=== PATIENT | female | born 1990 | race Caucasian/White ===

== ENCOUNTER 2017-05-27 18:51 | Outpatient (CLI) | payer MEDICAID ==
[~2017-05-27] VITALS: Ht 160 cm; Wt 74.7 kg
[~2017-05-27 18:51] MED LIST: ACET-2047 PO; AMO500 PO; CARB15DR50 LEFT EAR; CEPH500C PO; HYDR30CR75 PR; IBUP-1542 PO; OFLO5DRO7 BOTH EARS
[2017-05-27 19:53] VITALS: BP 123/78; PULSE 88; RESP 18
[2017-05-27] MEDS ORDERED: PRENAT PO (20:06)
[2017-05-27 20:29] LABS: ADD UMIC YES; UR AMORPHOUS CRYSTAL FEW /HPF (NONE SEEN); UR ASCORBIC ACID NEGATIVE (NEGATIVE); UR BACTERIA FEW /HPF (NONE SEEN); UR BILIRUBIN (Dip) NEGATIVE (NEGATIVE); UR BLOOD (Dip) NEGATIVE (NEGATIVE); UR CLARITY CLOUDY (CLEAR); UR COLOR YELLOW (YELLOW); UR GLUCOSE (Dip) NEGATIVE (NEGATIVE); UR KETONES (Dip) NEGATIVE (NEGATIVE); UR LEUKOCYTE ESTERASE (Dip) 2+ Leu/ul (NEGATIVE); UR MUCUS FEW /HPF (NONE SEEN); UR NITRITE (Dip) NEGATIVE (NEGATIVE); UR RBC 1 /HPF (0-5); UR SPECIFIC GRAVITY (Dip) 1.015 (1.003-1.030); UR SQUAMOUS EPITHELIAL CELL MODERATE /HPF (FEW); UR TOTAL PROTEIN (Dip) NEGATIVE (NEGATIVE); UR UROBILINOGEN (Dip) NEGATIVE (NEGATIVE)
--- NOTE | 2017-05-27 20:51 | RADRPT ---
PROCEDURE: OB ultrasound CLINICAL INDICATION: Pelvic pain and cholestasis TECHNIQUE: Multiple transverse and longitudinal OB images of the pelvis were obtained. The images were reviewed on a high-resolution PACS workstation. COMPARISON: None FINDINGS: A single live intrauterine is seen. The presentation is vertex. The placenta is grade 1 a nd fundal in location. No evidence of placenta abruption or previa is seen. The heart rate is 165 beats per minute. The amniotic fluid index is 13 cm. movement 2 tone 2 breathing 2 Amniotic fluid 2 IMPRESSION: Biophysical profile of 06/16. RPTAT: HPNM Physician Jason Date Time Electronically viewed and signed by Physician Jason on 05/27/2017 20:50 /
--- NOTE | 2017-05-27 20:53 | RADRPT ---
PROCEDURE: US OB. CLINICAL INDICATION: Pelvic pain and cholestasis TECHNIQUE: Multiple sonographic images of the pelvis were obtained. The images were reviewed on a PACS workstation. COMPARISON: No prior studies are available for comparison. FINDINGS: There is a single viable intrauterine gestation. Cardiac activity is present with 138 beats per min squaxin. There is a vertex presentation. Measurements were made in order to determine age. The results are as follows: BPD =8.4 cm HC =30.6 cm AC =31.9 cm FL =6.8 cm. Estimated gestational age of approximately 34 weeks 5 days. The estimated date of delivery is 07/03/2017. The EFW = 2616 grams. The placenta is grade 1 and fundal in location. There is no evidence for an abruption or placenta pr evia. There are no adnexal masses. IMPRESSION: Single live intrauterine with an estimated gestational age of 34 weeks 5 days. RPTAT: HPNM Physician Jason Date Time Electronically viewed and signed by Physician Jason on 05/27/2017 20:52 /
[2017-05-27 20:55] LABS: ALBUMIN/GLOBULIN RATIO 0.78; BILIRUBIN,INDIRECT 0.1 mg/dl (0-1.1); BILIRUBIN,TOTAL 0.1 mg/dl (0.2-1.3); CALCIUM 9.3 mg/dl (8.4-10.2); CREATININE 0.52 mg/dl (0.44-1.00); POTASSIUM 4.1 mmol/L (3.5-5.1); TOTAL PROTEIN 6.8 g/dl (6.1-8.1)
--- NOTE | 2017-05-27 21:29 | PN ---
Triage Information Date/Time 05/27/2017 Weeks of Gestation 36.1 : 7 Para: 3 Diabetes: none Hypertention: none Additional information sent in for evaluation and antepartum testing for ? elevated bile acids C/O generalized body itching X 1 weeks Objective Vital Signs Date Time Temp Pulse Resp B/P Pulse Ox O2 Delivery O2 Flow Rate FiO2 05/27/17 19:53 98.0 88 18 123/78 Room Air Heart Rate: 140's Heart Rate Comments Reactive Contractions: None Results/Medications Result Diagram: 05/27/172024 Results 24 hrs Laboratory Tests Test 05/27/17 19:10 05/27/17 20:25 Urine Color YELLOW Urine Clarity CLOUDY A Urine pH 7.0 Urine Specific [place] 1.015 Urine Ketones NEGATIVE Urine Nitrite NEGATIVE Urine Bilirubin NEGATIVE Urine Urobilinogen NEGATIVE Urine Leukocyte Esterase 2+ H Urine Microscopic RBC 1 Urine Microscopic WBC 17 H Urine Squamous Epithelial Cells MODERATE Urine Amorphous Crystals FEW A Urine Bacteria FEW A Urine Mucus FEW A Urine Hemoglobin NEGATIVE Urine Glucose NEGATIVE Urine Total Protein NEGATIVE Sodium Level 139 Potassium Level 4.1 Chloride Level 102 Carbon Dioxide Level 25 Anion Gap 16 Blood Urea Nitrogen 9 Creatinine 0.52 Glucose Level 84 Calcium Level 9.3 Total Bilirubin 0.1 L Direct Bilirubin 0.00 Indirect Bilirubin 0.1 Aspartate Amino Transf (AST/SGOT) 25 Alanine Aminotransferase (ALT/SGPT) 50 Alkaline Phosphatase 251 H Total Protein 6.8 Albumin 3.0 L Globulin 3.80 H Albumin/Globulin Ratio 0.78 Imaging Results BP 8 Assessment/Plan possible elevation of bile acids bile acids drawn, CMP: enzymes normal patient already started on Ursodiol will revisit X 2 days RALPH WHITE MD May 27, 2017 21:29
--- NOTE | 2017-05-27 22:05 | TRIAGE ---
OB Triage Datetime Report Generated by CPN: 05/27/2017 22:05 Datetime: 05/27/2017 19:15 Time of Arrival: 05/27/2017 18:46 EGA: 36.3 Arrived By: Wheelchair Arrived From: Dr. Sidhu Chief Complaint: sent from clinic d/t c/o itching x 1 wk w/ orders from Dr Smith Movement: Present Contractions: Denies/Absent Rupture of Membranes: Denies Vaginal Bleeding: None Vaginal Discharge: Denies Recent Sexual Intercouse: Denies Abdominal Trauma: Not Applicable Patient Complaints: Other Time Provider Notified: 05/27/2017 19:50 Provider Notified: Dr Smith Initial Plan: NST,BPP,EFW,CMP,BILE ACIDS,UA Datetime: 05/27/2017 19:04 Labor Evaluation Monitor Mode: External Heart Rate Monitor Mode: External US
== END 2017-05-27 21:40 | disposition home or self-care (01) ==
LOC: OBT 18:51 → L-D 18:53 → OBT 21:40
PROVIDERS: ATTEND Obstetrics & Gynecology
DX: O26.893 Other specified pregnancy related conditions, third trimester (principal); Z3A.36 36 weeks gestation of pregnancy; L29.9 Pruritus, unspecified
CPT/HCPCS: 76815; 76818; 80053; 81001; 83789; Z7500; G0463

== ENCOUNTER 2017-06-02 13:32 | Inpatient (IN) | payer MEDICAID ==
[~2017-06-02] VITALS: Ht 160 cm; Wt 75.0 kg
[~2017-06-02 13:32] MED LIST changes: -CARB15DR50 LEFT EAR; -CEPH500C PO; -HYDR30CR75 PR; -IBUP-1542 PO; -OFLO5DRO7 BOTH EARS; +PRENAT PO
[2017-06-02 14:04] VITALS: Ht 160 cm; Wt 75.0 kg
[2017-06-02 14:05] VITALS: BP 118/80; PULSE 76; RESP 17
[2017-06-02] MEDS ORDERED: FER325 PO (14:08)
[2017-06-02] MEDS ORDERED: OXYTOCIN 30 UNITS/LR 500 ML IV SCH (15:00)
[2017-06-02] MEDS ORDERED: IBUPROFEN 600 MG TAB PO PRN (15:00)
[2017-06-02] MEDS ORDERED: ACETAMINOPHEN/CODEINE #3 TAB PO PRN (15:00)
[2017-06-02] MEDS ORDERED: METHYLERGONOVINE 0.2 MG INJ IM PRN (15:00)
[2017-06-02] MEDS ORDERED: LIDOCAINE 1% (MPF) 30 ML INJ INJ PRN (15:00)
[2017-06-02] MEDS ORDERED: MISOPROSTOL 200 MCG TAB PR PRN (15:00)
[2017-06-02] MEDS ORDERED: OXYTOCIN 30 UNITS/LR 500 ML IV PRN (15:00)
[2017-06-02] MEDS ORDERED: CARBOPROST 250 MCG INJ IM PRN (15:00)
[2017-06-02] MEDS ORDERED: AMPICILLIN 2 GM/NS (PMX) 100 ML IV ONE (15:00)
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
[2017-06-02] MEDS ORDERED: MINERAL OIL LIGHT 10 ML VIAL TOP ONE (16:00)
[2017-06-02] MEDS ORDERED: DINOPROSTONE 10 MG VAG SUPP VAG ONE (16:00)
[2017-06-02] MEDS: LACTATED RINGER'S 1,000 ML IV SCH ×2 (16:21→22:29)
[2017-06-02 16:49] LABS: BASOPHILS % 0.3 % (0.0-2.0); EOSINOPHILS # 0.2 10^3/ul (0.0-0.5); EOSINOPHILS % 2.7 % (0.0-7.0); HEMATOCRIT 32.9 % (37.0-47.0); HEMOGLOBIN 10.4 g/dl (12.0-16.0); LYMPHOCYTES # 2.2 10^3/ul (0.8-2.9); LYMPHOCYTES % 32.4 % (15.0-51.0); MEAN CORPUSCULAR HEMOGLOBIN 28.5 pg (29.0-33.0); MEAN CORPUSCULAR HGB CONC 31.6 g/dl (32.0-37.0); MEAN CORPUSCULAR VOLUME 90.1 fl (82.0-101.0); MEAN PLATELET VOLUME 11.9 fl (7.4-10.4); MONOCYTE # 0.4 10^3/ul (0.3-0.9); MONOCYTES % 6.6 % (0.0-11.0); NEUTROPHIL # 3.8 10^3/ul (1.6-7.5); NEUTROPHILS % 56.9 % (39.0-77.0); PLATELET COUNT 296 10^3/UL (140-415); RED BLOOD COUNT 3.65 10^6/ul (4.20-5.40); WHITE BLOOD COUNT 6.6 10^3/ul (4.8-10.8)
[2017-06-02] MEDS ORDERED: LACTATED RINGER'S 1,000 ML IV PRN (17:00)
[2017-06-02 17:03] LABS: INR 0.91; PARTIAL THROMBOPLASTIN TIME 26.9 Sec (25.0-35.0); PROTIME 12.2 Sec (12.2-14.2)
[2017-06-02] MEDS ORDERED: CALC600T11 PO (17:25)
[2017-06-02 17:27] LABS: BARBITURATES NEGATIVE (NEGATIVE); BENZODIAZEPINES NEGATIVE (NEGATIVE); CANNABINOIDS NEGATIVE (NEGATIVE); COCAINE NEGATIVE (NEGATIVE); OPIATES NEGATIVE (NEGATIVE)
[2017-06-02] MEDS ORDERED: URSO300C21 PO (17:27)
[2017-06-02] MEDS: AMPICILLIN 1 GM/NS (PMX) 50 ML IV SCH ×2 (18:35→22:30)
[2017-06-02] MEDS ORDERED: MINERAL OIL LIGHT 10 ML VIAL TOP SCH (19:00)
[2017-06-03] MEDS: BUTORPHANOL 2 MG INJ IV PRN ×2 (00:20→03:14)
[2017-06-03] MEDS: AMPICILLIN 1 GM/NS (PMX) 50 ML IV SCH ×6 (03:05→23:14)
[2017-06-03] MEDS: LACTATED RINGER'S 1,000 ML IV SCH ×2 (06:59→15:00)
--- NOTE | 2017-06-03 15:00 | PN ---
Date/Time of Note Date/Time of Note DATE: 06/03/17 TIME: 14:59 OB Subjective Subjective Subjective No complaint of labor pain Has epidural On Cervidil OB Objective Objective Objective Cervix is 50% 1-2 cm open presenting part vertex at -3 station OB Assessment/Plan Reason for admission: induction of labor Other Assessment: 37+ weeks gestation Cholestasis Other plan: Reevaluate patient after 24 hours Cervidil induction RALPH WHITE MD Jun 03, 2017 15:00
[2017-06-03] MEDS ORDERED: OXYTOCIN 30 UNITS/LR 500 ML IV SCH (17:00)
[2017-06-03] MEDS: FENTAnyl 2MCG/ML-ROPIV 0.2% 100 ML BAG EPI SCH (17:17)
[2017-06-03] MEDS ORDERED: TRIMETHOBENZAMIDE 100 MG/ML VIAL IM PRN (17:30)
[2017-06-03] MEDS ORDERED: ONDANSETRON 4 MG INJ IV PRN (17:30)
[2017-06-03] MEDS ORDERED: HYDROmorphONE 1 MG/ML SYG IV PRN ×2 (17:30)
[2017-06-03] MEDS ORDERED: DIPHENHYDRAMINE 50 MG INJ IV PRN (17:30)
[2017-06-03] MEDS ORDERED: NALOXONE (0.4 MG/ML) INJ IV PRN (17:30)
[2017-06-03] MEDS ORDERED: FENTAnyl 2MCG/ML-ROPIV 0.2% 100 ML ONE (18:03)
[2017-06-03] MEDS: OXYTOCIN 30 UNITS/LR 500 ML IV SCH (23:40)
[2017-06-04] MEDS: LACTATED RINGER'S 1,000 ML IV SCH ×3 (02:07→13:36)
[2017-06-04] MEDS: FENTAnyl 2MCG/ML-ROPIV 0.2% 100 ML BAG EPI SCH ×2 (02:08→10:16)
[2017-06-04] MEDS: AMPICILLIN 1 GM/NS (PMX) 50 ML IV SCH ×4 (03:03→14:47)
[2017-06-04] MEDS ORDERED: MINERAL OIL LIGHT 10 ML VIAL TOP SCH (10:30)
--- NOTE | 2017-06-04 15:11 | LDN ---
Date/Time of Note Date/Time of Note DATE: 06/04/17 TIME: 15:09 Delivery Summary Normal spontaneous vaginal delivery of a viable over intact perineum Weeks of Gestation 37+ Placenta Delivered: Spontaneously, Intact & Complete Meconium: Light Episiotomy: No Perineal laceration: 0 Anesthesia type: Epidural Estimated blood loss: 300 Sponge & Needle done & correct: Yes All needle counts correct: Yes Any foreign bodies felt in the: No Problems: Infant Delivery Information Sex Infant Sex: male Apgars 1 Minute: 9 5 Minute: 9 Suctioning Nose & mouth suctioned at kian: Yes Delee suction performed: No Umbilical Cord Umbilical cord with: 3 Vessels Cord presentations: no nuchal cord Cord Blood was obtained: Yes Mother & Baby Disposition Disposition Mom & Baby to Maternity; Good: Yes (Mother and baby were recovered in good condition) Mom transferred to: Other (Maternity) Baby to NICU: No RALPH WHITE MD Jun 04, 2017 15:11
[2017-06-04] MEDS: OXYTOCIN 30 UNITS/LR 500 ML IV SCH ×2 (15:22→17:17)
[2017-06-04] MEDS: LACTATED RINGER'S 1,000 ML IV* SCH (17:38)
[2017-06-04 18:00] VITALS: BP 120/81; PULSE 66; RESP 18
[2017-06-04] MEDS ORDERED: ZOLPIDEM 5 MG TAB PO PRN (18:00)
[2017-06-04] MEDS: IBUPROFEN 600 MG TAB PO SCH ×2 (18:00→23:57)
[2017-06-04] MEDS ORDERED: BENZOCAINE 20% 56 ML SPRAY TOP PRN (18:00)
[2017-06-04] MEDS ORDERED: METHYLERGONOVINE 0.2 MG INJ IM PRN (18:00)
[2017-06-04] MEDS ORDERED: OXYTOCIN 30 UNITS/LR 500 ML IV PRN (18:00)
[2017-06-04] MEDS ORDERED: WITCH HAZEL/GLYCERIN PAD PR PRN (18:00)
[2017-06-04] MEDS ORDERED: ACETAMINOPHEN/CODEINE #3 TAB PO PRN ×2 (18:00)
[2017-06-04] MEDS ORDERED: MISOPROSTOL 200 MCG TAB PR PRN (18:00)
[2017-06-04] MEDS ORDERED: CARBOPROST 250 MCG INJ IM PRN (18:00)
[2017-06-04] MEDS ORDERED: DIBUCAINE 1% 30 GM OINT PR PRN (18:00)
[2017-06-04] MEDS ORDERED: LANOLIN 7 GM TUBE TOP PRN (18:00)
[2017-06-04 18:30] VITALS: BP 128/80; PULSE 64; RESP 18
[2017-06-04] MEDS: CEPHALEXIN 500 MG CAP PO SCH ×2 (18:40→23:57)
[2017-06-04 20:00] VITALS: BP 113/74; PULSE 79; RESP 18
[2017-06-04] MEDS: SENNA/DOCUSATE NA (8.6MG/50MG) TAB PO SCH (21:18)
[2017-06-04] MEDS: MAGNESIUM HYDROXIDE 30ML CUP PO SCH (21:19)
[2017-06-05] VITALS: BP 118/65; PULSE 73; RESP 20
[2017-06-05] MEDS: LACTATED RINGER'S 1,000 ML IV* SCH (01:38)
[2017-06-05 04:01] VITALS: BP 138/82; PULSE 53; RESP 18
[2017-06-05] MEDS: CEPHALEXIN 500 MG CAP PO SCH ×4 (05:51→23:43)
[2017-06-05] MEDS: IBUPROFEN 600 MG TAB PO SCH ×4 (05:52→21:54)
[2017-06-05 07:59] LABS: BASOPHILS % 0.2 % (0.0-2.0); EOSINOPHILS # 0.2 10^3/ul (0.0-0.5); EOSINOPHILS % 1.5 % (0.0-7.0); HEMATOCRIT 28.8 % (37.0-47.0); HEMOGLOBIN 9.1 g/dl (12.0-16.0); LYMPHOCYTES # 2.1 10^3/ul (0.8-2.9); MEAN CORPUSCULAR HEMOGLOBIN 28.5 pg (29.0-33.0); MEAN CORPUSCULAR HGB CONC 31.6 g/dl (32.0-37.0); MEAN CORPUSCULAR VOLUME 90.3 fl (82.0-101.0); MEAN PLATELET VOLUME 11.3 fl (7.4-10.4); MONOCYTE # 0.6 10^3/ul (0.3-0.9); MONOCYTES % 6.3 % (0.0-11.0); NEUTROPHIL # 6.7 10^3/ul (1.6-7.5); NEUTROPHILS % 69.6 % (39.0-77.0); PLATELET COUNT 254 10^3/UL (140-415); RED BLOOD COUNT 3.19 10^6/ul (4.20-5.40); RED CELL DISTRIBUTION WIDTH 17.6 % (11.5-14.5); WHITE BLOOD COUNT 9.7 10^3/ul (4.8-10.8)
[2017-06-05 08:10] VITALS: BP 111/73; PULSE 54; RESP 16
[2017-06-05] MEDS: SENNA/DOCUSATE NA (8.6MG/50MG) TAB PO SCH ×2 (08:12→21:50)
[2017-06-05] MEDS: MAGNESIUM HYDROXIDE 30ML CUP PO SCH ×2 (08:14→21:50)
[2017-06-05 15:52] VITALS: BP 114/74; PULSE 60; RESP 14
--- NOTE | 2017-06-05 16:25 | DS ---
Date/Time of Note Date/Time of Note Home next day DATE: 06/05/17 TIME: 16:24 Obstetrical Discharge Record Final Diagnosis Final Diagnosis: Term delivered Other Final Diagnosis Status post vaginal delivery Vaginal Delivery Obstetrical Delivery: Spontaneous Complications Other (Cholestasis) Augmentation: Yes Induction: Yes Condition on Discharge Physical Assessment Last Vitals: See nurse's notes Voiding: Yes Bowel Movement: Yes Breast: Soft, non-tender, Filling Fundus: Firm Abdomen and Incision: Soft bowel sounds positive Episiotomy: Perineum is clean Calf Tenderness: No Patient Condition: Good RALPH WHITE MD Jun 05, 2017 16:25
--- NOTE | 2017-06-05 18:00 | PD.PPDC ---
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
[2017-06-05] MEDS ORDERED: IBUP-1542 PO (18:01)
[2017-06-05 19:10] VITALS: BP 136/77; PULSE 62; RESP 20
[2017-06-06 03:50] VITALS: BP 107/57; PULSE 59; RESP 16
[2017-06-06] MEDS: IBUPROFEN 600 MG TAB PO SCH ×2 (05:52→12:37)
[2017-06-06] MEDS: CEPHALEXIN 500 MG CAP PO SCH ×2 (05:52→12:37)
[2017-06-06 08:10] VITALS: BP 121/83; PULSE 58; RESP 16
[2017-06-06] MEDS: SENNA/DOCUSATE NA (8.6MG/50MG) TAB PO SCH (08:51)
[2017-06-06] MEDS: MAGNESIUM HYDROXIDE 30ML CUP PO SCH (08:51)
[2017-06-06] MEDS ORDERED: DIPHTH/TET/ACEL PERTUSS (ADULT) 0.5 ML VIAL IM* ONE (09:00)
[2017-06-06] MEDS ORDERED: MEASLES,MUMPS,RUBELLA VACCINE INJ SC* ONE (09:00)
[2017-06-06] MEDS ORDERED: VARICELLA VACCINE LIVE/PF 1,350 UNIT/0.5 ML ML SC* ONE (09:00)
[2017-06-06 15:45] VITALS: BP 118/68; PULSE 66; RESP 14
== END 2017-06-06 15:45 | disposition home or self-care (01) | DRG 775 ==
LOC: L-D 13:32 → PP1 06-04 18:01 → EDSTATUS 06-21 13:29
PROVIDERS: ADMIT Obstetrics & Gynecology; ATTEND Obstetrics & Gynecology
PROC: 10E0XZZ Delivery of Products of Conception, External Approach (ICD-10-PCS; principal; 2017-06-04)
DX: O26.62 Liver and biliary tract disorders in childbirth (principal); K83.1 Obstruction of bile duct; Z3A.37 37 weeks gestation of pregnancy; Z37.0 Single live birth; O99.824 Streptococcus B carrier state complicating childbirth
CPT/HCPCS: 62319; 80307; 85025; 85610; 85730; 86592; 86900; 86901; 87340; 90715; 90716; 99464; J0290; J0595; J2590; J3010; J7120

== ENCOUNTER 2017-09-01 17:05 | Emergency (ER) | payer MEDICAID, OTHER ==
[~2017-09-01] VITALS: Ht 160 cm; Wt 64.0 kg
[~2017-09-01 17:05] MED LIST changes: -AMO500 PO; +CALC600T24 PO; +FER325 PO; +IBUP-1542 PO
[2017-09-01 17:10] VITALS: Ht 160 cm; Wt 64.0 kg
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
== END 2017-09-01 18:34 | disposition home or self-care (01) ==
LOC: FTE 17:05
DX: Z04.1 Encounter for examination and observation following transport accident (principal)
CPT/HCPCS: 99282

== ENCOUNTER 2018-07-08 17:36 | Emergency (ER) | END 2018-07-08 20:07 | disposition home or self-care (01) ==

== ENCOUNTER 2019-04-03 23:32 | Emergency (ER) | payer MEDICAID, OTHER ==
[~2019-04-03] VITALS: Ht 160 cm; Wt 63.7 kg
[2019-04-03 23:42] VITALS: Ht 160 cm; Wt 63.7 kg
[2019-04-04] MEDS ORDERED: AMOX1TAB10 PO (01:54)
[2019-04-04] MEDS ORDERED: IBUP-1542 PO (01:54)
[2019-04-04 02:30] VITALS: BP 120/70; PULSE 70; RESP 16
--- NOTE | 2019-04-04 02:45 | ERD ---
ER Documentation Chief Complaint Chief Complaint L ear "leaking" x 1 month HPI 28 female presents with complaint of left ear leaking for the past month. States that she was diagnosed with otitis media 2 weeks ago and went on amoxicillin for 10 days. Since then she states that she has been having this leakage from her ear. States that her hearing is intact. Denies any pain, fevers, mastoid tenderness, diabetes. ROS All systems reviewed and are negative except as per history of present illness. Medications Home Meds Active Scripts Ibuprofen* (Motrin*) 600 Mg Tab, 600 MG PO Q6H PRN for PAIN AND OR ELEVATED TEMP, #30 TAB Prov:BARTOLO GRAHAM 04/04/19 Amoxicillin/Potassium Clav (Amox-Clav 875-125 mg Tablet) 875-125 mg Tab, 1 TAB PO BID for otitis media for 10 Days, #20 TAB Prov:BARTOLO GRAHAM 04/04/19 Ibuprofen* (Motrin*) 600 Mg Tab, 600 MG PO Q6, #30 TAB Prov:STEW PEDRAZA 07/08/18 Ibuprofen* (Ibuprofen*) 600 Mg Tablet, 600 MG PO Q6, #30 TAB 0 Refills Prov:RALPH WHITE MD 06/05/17 Acetaminophen* (Acetaminophen*) 650 Mg Tablet, 650 MG PO QID PRN for PAIN AND OR ELEVATED TEMP, #14 TAB Prov:RAMONITA CARREON MD 11/22/15 Reported Medications Calcium Carbonate* (Calcium Carbonate*) 600 MG Ca Tab, 600 MG PO QAM, TAB 06/02/17 Ferrous Sulfate* (Ferrous Sulfate*) 325 Mg Tabec, 325 MG PO TID, TAB 06/02/17 Multivit/Min/Fol Ac/Iron/Pren* ( S*) 1 Tab Tab, 1 TAB PO DAILY, TAB 05/27/17 Allergies Allergies: Coded Allergies: No Known Allergies (Verified Allergy, Mild, 06/02/17) PMhx/Soc History of Surgery: No Anesthesia Reaction: No Hx Neurological Disorder: No Hx Respiratory Disorders: No Hx Cardiac Disorders: No Hx Psychiatric Problems: No Hx Miscellaneous Medical Probl: No Hx Alcohol Use: No Hx Substance Use: Yes (marijuana) Hx Tobacco Use: Yes (10 cig day) Smoking Status: Current every day smoker FmHx Family History: No diabetes, No coronary disease, No other Physical Exam Vitals Vital Signs Date Temp Pulse Resp B/P (MAP) Pulse Ox O2 O2 Flow FiO2 Time Delivery Rate 04/03/19 97.0 71 16 122/79 96 23:42 (93) Physical Exam Const: No acute distress Head: Atraumatic Eyes: Normal Conjunctiva ENT: Normal External Ears, Nose and Mouth. Yellow discharge noted from the left ear canal. Mastoids are nontender, edematous, erythematous bilaterally. Neck: Full range of motion. No meningismus. Resp: Clear to auscultation bilaterally Cardio: Regular rate and rhythm, no murmurs Abd: Soft, non tender, non distended. Normal bowel sounds Skin: No petechiae or rashes Back: No midline or flank tenderness Ext: No cyanosis, or edema Neur: Awake and alert Psych: Normal Mood and Affect Procedures/MDM MDM: Patient's presentation is consistent with possible TM rupture secondary to otitis media. I discussed the case with my supervising physician Dr. Prieto and he stated that patient be fit for discharge with ENT referral and prescription for antibiotics. Patient was prescribed Augmentin and advised to follow-up with ENT within 24 hours. Patient understood and agreed. Patient's hearing is intact. I will suspicion for mastoiditis, malignant otitis externa, or other emergent conditions. Patient discharged with strict ER precautions. Patient advised to follow up with PMD. All questions answered at discharge. Departure Diagnosis: Primary Impression: Rupture of left tympanic membrane Condition: Stable Patient Instructions: Ruptured Tm, Infected (Adult) Referrals: JAYJAY DA SILVA MD, STEPHEN H MD Additional Instructions: Please follow-up with the ENT within 24 hours. There is a name of 2 doctors in your packet. Return to ER before then if symptoms worsen. BARTOLO GRAHAM April 04, 2019 02:45
== END 2019-04-04 02:30 | disposition home or self-care (01) ==
LOC: FTE 23:32
DX: H72.92 Unspecified perforation of tympanic membrane, left ear (principal); F17.210 Nicotine dependence, cigarettes, uncomplicated
CPT/HCPCS: 99283